=== PATIENT | female | born 1990 | race American Indian/Alaskan Native ===

== ENCOUNTER 2017-03-28 09:51 | Emergency (ER) | payer OTHER ==
[2017-03-28] MEDS ORDERED: NORCO 5/325 PO ONE (14:16)
[2017-03-28] MEDS ORDERED: FLEXERIL PO ONE (14:16)
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
[2017-03-28 15:26] VITALS: BP 124/87
== END 2017-03-28 16:44 | disposition home or self-care (01) ==
LOC: ED 09:51
DX: M79.605 Pain in left leg (principal); M79.604 Pain in right leg; I10 Essential (primary) hypertension
CPT/HCPCS: 99282

== ENCOUNTER 2018-03-26 11:06 | Emergency (ER) | payer MEDICAID, OTHER ==
[2018-03-26] MEDS ORDERED: NACL 0.9% 1000 ML 1,000 ML IV ONE (11:23)
--- NOTE | 2018-03-26 11:26 | Emergency Department Report ---
Blank Doc - Documentation Documentation: 27 y o present 6 weeks preg with left pelvic pain x 2 dya labs ordered Plan: US Rm [id number] revaluate
[2018-03-26 11:52] LABS: Basophils % (Auto) 0.7 % (0.0-1.8); Eosinophils # (Auto) 0.1 K/mm3 (0.0-0.4); Eosinophils % (Auto) 2.7 % (0.0-4.3); Hematocrit 35.9 % (30.3-42.9); Hemoglobin 11.6 gm/dl (10.1-14.3); Lymphocytes # (Auto) 1.4 K/mm3 (1.2-5.4); Lymphocytes % (Auto) 35.2 % (13.4-35.0); Mean Corpuscular HGB Conc 32 % (30-34); Mean Corpuscular Volume 84 fl (79-97); Monocytes # (Auto) 0.4 K/mm3 (0.0-0.8); Monocytes % (Auto) 9.1 % (0.0-7.3); Platelet Count 235 K/mm3 (140-440); Red Cell Distribution Width 14.3 % (13.2-15.2)
[2018-03-26 12:36] LABS: Bacteria,Urine 4+ /HPF (Negative); Bilirubin,Urine NEG (Negative); Blood,Urine NEG (Negative); Color,Urine Yellow (Yellow); Mucus,Urine FEW /HPF; Protein,Urine <15 mg/dL mg/dL (Negative); Urobilinogen,Urine < 2.0 mg/dL (<2.0)
--- NOTE | 2018-03-26 12:40 | Emergency Department Report ---
ED HPI - General Chief complaint: Abdominal Pain Stated complaint: ABD PAIN/PREG Time Seen by Provider: 03/26/18 11:20 Source: patient Mode of arrival: Ambulatory Limitations: No Limitations - History of Present Illness Initial comments: This is a 27-year-old female nontoxic, well nourished in appearance, no acute signs of distress presents to the ED with c/o of left sided pelvic pain x2 days. Patient stated is about 6 weeks . Patient denies any vaginal bleeding. Patient denies any abdominal pain. Patient denies any vaginal discharge or foul odor. Patient denies any nausea, vomiting, chest pain, shortness of breathe, fever, chills, headache, stiff neck, numbness, tingling. Patient denies any urinary symptoms. Patient denies any allergies or PMH. LMP was 02/12/2018. Complaint: other (pelvic pain) -: days(s) (2) Location: pelvis Radiation: none Severity: mild Severity scale (0 -10): 8 Quality: cramping, aching Consistency: constant Improves with: none Worsens with: none Associated symptoms: denies: nausea/vomiting, vaginal bleeding, vaginal discharge, abdominal pain, dysuria, headache, vision changes, malaise, dysparuenia, rash, seizure, shortness of breath, syncope, weakness Vaginal bleeding: none :: Yes Number of weeks : 6 Pre-devon care: none - Related Data Home Medications Medication Instructions Recorded Confirmed Last Taken oxyCODONE /ACETAMINOPHEN [Percocet 1 tab PO Q4-6H PRN 03/30/14 03/30/14 03/29/14 22:00 5/325 mg] Previous Rx's Medication Instructions Recorded Last Taken Type Acetaminophen/Codeine 1 tab PO Q6H PRN #15 tab 03/30/14 Unknown Rx [Acetaminophen-Codeine #3 TAB] Diclofenac Dr [Nilay Dewey] 75 mg PO TID #20 tablet 03/30/14 Unknown Rx methOCARBAMOL [Robaxin] 500 mg PO Q6H PRN #20 tablet 03/30/14 Unknown Rx Cyclobenzaprine [Flexeril] 10 mg PO TID PRN #15 tablet 03/28/17 Unknown Rx Ibuprofen [Motrin] 600 mg PO Q8H PRN 5 Days #15 tablet 03/28/17 Unknown Rx Acetaminophen 500 mg PO Q8H PRN #20 tablet 03/26/18 Unknown Rx 21/Iron Fu/Folic Acid 1 each PO DAILY #30 tablet 03/26/18 Unknown Rx [ Complete Caplet] Allergies Allergy/AdvReac Type Severity Reaction Status Date / Time No Known Allergies Allergy Verified 03/30/14 10:35 ED Review of Systems ROS: Stated complaint: ABD PAIN/PREG Other details as noted in HPI Constitutional: denies: chills, fever Eyes: denies: eye pain, eye discharge, vision change ENT: denies: ear pain, throat pain Respiratory: denies: cough, shortness of breath, wheezing Cardiovascular: denies: chest pain, palpitations Endocrine: no symptoms reported Gastrointestinal: denies: abdominal pain, nausea, diarrhea Genitourinary: denies: urgency, dysuria, discharge Musculoskeletal: denies: back pain, joint swelling, arthralgia Skin: denies: rash, lesions Neurological: denies: headache, weakness, paresthesias Psychiatric: denies: anxiety, depression Hematological/Lymphatic: denies: easy bleeding, easy bruising ED Past Medical Hx - Past Medical History Hx Hypertension: Yes Hx Asthma: Yes - Surgical History Additional Surgical History: . laproscopy-right ovary and tube removed. kidney biopsy - Social History Smoking Status: Never Smoker Substance Use Type: None - Medications Home Medications: Home Medications Medication Instructions Recorded Confirmed Last Taken Type Acetaminophen/Codeine 1 tab PO Q6H PRN #15 tab 03/30/14 Unknown Rx [Acetaminophen-Codeine #3 TAB] Diclofenac Dr [Nilay Dewey] 75 mg PO TID #20 tablet 03/30/14 Unknown Rx methOCARBAMOL [Robaxin] 500 mg PO Q6H PRN #20 tablet 03/30/14 Unknown Rx oxyCODONE /ACETAMINOPHEN [Percocet 1 tab PO Q4-6H PRN 03/30/14 03/30/14 03/29/14 22:00 History 5/325 mg] Cyclobenzaprine [Flexeril] 10 mg PO TID PRN #15 tablet 03/28/17 Unknown Rx Ibuprofen [Motrin] 600 mg PO Q8H PRN 5 Days #15 tablet 03/28/17 Unknown Rx Acetaminophen 500 mg PO Q8H PRN #20 tablet 03/26/18 Unknown Rx 21/Iron Fu/Folic Acid 1 each PO DAILY #30 tablet 03/26/18 Unknown Rx [ Complete Caplet] ED Physical Exam - General Limitations: No Limitations General appearance: alert, in no apparent distress - Head Head exam: Present: atraumatic, normocephalic - Neck Neck exam: Present: normal inspection, full ROM - GI/Abdominal GI/Abdominal exam: Present: soft, tenderness (left pelvic area), normal bowel sounds. Absent: distended, guarding, rebound, rigid, diminished bowel sounds - Expanded GI/Abdominal Exam Expanded GI/Abdominal exam: Absent: psoas sign, Bryant's sign, Rovsing's sign, tenderness at [place]bur[place]'s Point, ascites - Extremities Exam Extremities exam: Present: normal inspection, full ROM - Back Exam Back exam: Present: normal inspection, full ROM - Neurological Exam Neurological exam: Present: alert, oriented X3 - Psychiatric Psychiatric exam: Present: normal affect, normal mood - Skin Skin exam: Present: warm, dry, intact, normal color. Absent: rash ED Course Vital Signs 03/26/18 11:19 Temperature 97.7 F Pulse Rate 94 H Respiratory 16 Rate Blood Pressure 123/58 O2 Sat by Pulse 99 Oximetry - Reevaluation(s) Reevaluation #1: 03/26/18 12:41 Patient is speaking in full sentences with no signs of distress noted. Reevaluation #2: 03/26/18 15:23 Patient returned to the ED for results. ED Medical Decision Making - Lab Data Result diagrams: 03/26/18 11:41 - Medical Decision Making This is a 27-year-old female that presents with left pelvic pain. Patient was examined by me. Patient does have left pelvic tenderness. Patient is currently 6 weeks so labs obtained. Ultrasound has been obtained. Patient left prior to receiving ultrasound results. Patient was educated and instructed of concern about ectopic which can lead to severe risk complications and but patient stated she has to leave. I had RN Sherman also speak with patient and educated patient to stay but patient left AMA. Patient return to emergency room for results after the Case. Pelvic ultrasound has been reviewed and does have a gestational sac with no heart tone. Patient is currently about 6 weeks . No ectopic noted. Patient has been notified of the results with all questions noted by the patient. 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 Patient was educated of symptoms of ectopic and to return to emergency room as was possible if this does occur. At time of discharge, the patient does not seem toxic or ill in appearance. No acute signs of distress noted. Patient agrees to discharge treatment plan of care. No further questions noted by the patient. Critical care attestation.: If time is entered above; I have spent that time in minutes in the direct care of this critically ill patient, excluding procedure time. ED Disposition Clinical Impression: Pelvic pain affecting Qualifiers: Trimester: unspecified trimester Qualified Code(s): O26.899 - Other specified related conditions, unspecified trimester Disposition: - TO HOME OR SELFCARE Is pt being admited?: No Does the pt Need Aspirin: No Condition: Stable Instructions: Ectopic (ED), (ED) Additional Instructions: Follow-up with a OBGYN doctor in 2-3 days or if symptoms worsen and continue return to emergency room as soon as possible. Prescriptions: Acetaminophen 500 mg PO Q8H PRN #20 tablet PRN Reason: Pain , Severe (7-10) 21/Iron Fu/Folic Acid [ Complete Caplet] 1 each PO DAILY #30 tablet Referrals: KAY GUPTA MD [Primary Care Provider] - 3-5 Days PRIMARY CAREMD [Referring] - 3-5 Days VONDA MCKEON MD [Staff Physician] - 3-5 Days [facility] [Provider Group] - 3-5 Days Forms: Work/School Release Form(ED)
--- NOTE | 2018-03-26 15:11 | Ultrasound Report ---
FINAL REPORT EXAM: US OB <= 14 WEEKS FETUS, TRANSABDOMINAL and TRANSVAGINAL HISTORY: pelvic pain , patient TECHNIQUE: Pelvis ultrasound using 2 different techniques: TRANSABDOMINAL and TRANSVAGINAL PRIORS: None. FINDINGS: An 11 mm gestational sac is present in the endometrial cavity containing only a yolk sac without feta l pole. viability cannot be documented with evidence of pole and/or cardiac activity. Average estimated gestational age by ultrasound: 5 weeks 6 days Estimated delivery date: 11/20/2018 Nonspecific 2.6 x 1.2 x 0.8 cm hypoechoic focus adjacent to the gestational sac may be a subchorionic hemorrhage. Uterus measures 10.6 x 5.5 x 7.1 cm. Endometrial thickness 29 mm. Nonspecific slight complex cul-de-sac free fluid. Right ovary surgically absent. Left ovary measures 3.4 x 1.9 x 3.7 cm. 2.7 cm hypoechoic nonspecific lesion in left ovary may be a corpus luteum. Left ovarian blood flow noted. IMPRESSION: Intrauterine gestational sac contains a yolk sac but no pole. viability cannot be documen jake on this exam. Follow-up may be useful in the appropriate clinical setting Small hypoechoic focus adjacent to the gestational sac may be a small subchorionic hemorrhage Nonspecific slight complex cul-de-sac free fluid Surgically absent right ovary Small hypoechoic focus in left ovary may be a corpus luteum
--- NOTE | 2018-03-26 15:14 | Ultrasound Report ---
FINAL REPORT EXAM: US OB TRANSVAGINAL AND TRANSABDOMINAL HISTORY: pelvic pain TECHNIQUE: Pelvis ultrasound using 2 different techniques: TRANSABDOMINAL and TRANSVAGINAL PRIORS: None. FINDINGS: An 11 mm gestational sac is present in the endometrial cavity containing only a yolk sac without feta l pole. viability cannot be documented with evidence of pole and/or cardiac activity. Average estimated gestational age by ultrasound: 5 weeks 6 days Estimated delivery date: 11/20/2018 Nonspecific 2.6 x 1.2 x 0.8 cm hypoechoic focus adjacent to the gestational sac may be a subchorionic hemorrhage. Uterus measures 10.6 x 5.5 x 7.1 cm. Endometrial thickness 29 mm. Nonspecific slight complex cul-de-sac free fluid. Right ovary surgically absent. Left ovary measures 3.4 x 1.9 x 3.7 cm. 2.7 cm hypoechoic nonspecific lesion in left ovary may be a corpus luteum. Left ovarian blood flow noted. IMPRESSION: Intrauterine gestational sac contains a yolk sac but no pole. viability cannot be documen jake on this exam. Follow-up may be useful in the appropriate clinical setting Small hypoechoic focus adjacent to the gestational sac may be a subchorionic hemorrhage Nonspecific slight complex cul-de-sac free fluid Surgically absent right ovary Small hypoechoic focus in left ovary may be a corpus luteum
[2018-03-26 15:39] VITALS: BP 106/64
== END 2018-03-26 15:34 | disposition home or self-care (01) ==
LOC: ED 11:06
DX: O26.891 Other specified pregnancy related conditions, first trimester (principal); O16.1 Unspecified maternal hypertension, first trimester; O99.511 Diseases of the respiratory system complicating pregnancy, first trimester; Z3A.01 Less than 8 weeks gestation of pregnancy
CPT/HCPCS: 36415; 76801; 76817; 81001; 84702; 85025; 99284; J7030

== ENCOUNTER 2018-10-29 17:07 | Outpatient (CLI) | payer OTHER ==
[2018-10-29 18:01] VITALS: BP 110/74
== END 2018-10-29 19:05 | disposition home or self-care (01) ==
LOC: TRG 17:07
PROVIDERS: ATTEND Obstetrics & Gynecology
DX: O47.03 False labor before 37 completed weeks of gestation, third trimester (principal); Z3A.36 36 weeks gestation of pregnancy
CPT/HCPCS: 59025

== ENCOUNTER 2018-10-30 02:58 | Outpatient (CLI) | payer OTHER ==
[2018-10-30] MEDS ORDERED: LACTATED RINGERS 1,000 ML IV ONE (03:10)
[2018-10-30 03:28] VITALS: BP 109/54
== END 2018-10-30 04:50 | disposition home or self-care (01) ==
LOC: TRG 02:58
PROVIDERS: ATTEND Obstetrics & Gynecology
DX: O26.893 Other specified pregnancy related conditions, third trimester (principal); R10.31 Right lower quadrant pain; O99.513 Diseases of the respiratory system complicating pregnancy, third trimester; J45.909 Unspecified asthma, uncomplicated; O10.913 Unspecified pre-existing hypertension complicating pregnancy, third trimester; Z3A.36 36 weeks gestation of pregnancy
CPT/HCPCS: 59025; 96360; J7120

== ENCOUNTER 2018-11-19 09:33 | Inpatient (IN) | payer OTHER ==
--- NOTE | 2018-11-17 10:13 | History and Physical Report ---
History of Present Illness Date of examination: 11/17/18 Date of admission: 11/19/18 Chief complaint: here for c/s History of present illness: Pt presents for pre op for c/s. All risk, benefits, and alternatives were d/w pt and questions were addressed and answered. Pt was given ample time to ask questions. Consents were signed and given to pt to bring to hospital day of surgery. Pt does not desire BTl at this time. EDC Confirmation: 11/24/2018 Gestational Age: 8 3/7 weeks Past History : 4 Term Births: 2 Premature Births: 0 Living Children: 2 Para: 2 Mult. Births: 0 Prev : 1 Aborta: 1 Elect. Ab: 1 Spont. Ab: 0 Ectopics: 0 # 1 Delivery date: 03/21/2009 Weeks Gestation: 41 labor: no Delivery type: Hours of labor: 10 Anesthesia type: epidural Delivery location: [place] Infant Sex: Male weight: 7'1 Name: Lanre Comments: post part inc of bp # 2 Weeks Gestation: - Delivery type: EAB Sex: - weight: - Comments: - # 3 Delivery date: 2010 Weeks Gestation: 39 labor: no Delivery type: Anesthesia type: spinal Delivery location: [place] Sex: Female weight: 6-13 Name: Cary Comments: Breech Past Medical History: Asthma Depression Attention Deficiit Disorder Past Surgical History: laparatomy for UNILAT so 2010 RS&O Kidney biopsy Social History: Patient is single has a partner. no condoms Smoking History: Patient has never smoked. 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 no condoms Smoking History: Patient has never smoked. 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 of genital herpes: no Infection History Comments: GC Genetic History Congenital Heart Defect: Mom: no Dad: no Charisma Disease: Mom: no Dad: no Thalassemia Mom: no Dad: no Neural Tube Defect Mom: no Dad: no Down's Syndrome Mom: no Dad: no Kwaku-Sachs Mom: no Dad: no Sickle Cell Disease/Trait Mom: no Dad: no Hemophilia Mom: no Dad: no Muscular Dystrophy Mom: no Dad: no Cystic Fibrosis Mom: no Dad: no Rigo Chorea Mom: no Dad: no Mental Retardation Mom: no Dad: no Fragile X Mom: no Dad: no Other Genetic/Chromosomal Disorder Mom: no Dad: no Child w/other defect Mom: no Dad: no Enviromental Exposures Xray Exposure: no Medication, drug, or alcohol use since LMP: yes Chemical/Other Exposure: no Exposure to Cat Liter: no Active Medications (reviewed today): PROZAC 20 MG ORAL CAPSULE (FLUOXETINE HCL) one po q day ADDERALL 20 MG ORAL TABLET (AMPHETAMINE-DEXTROAMPHETAMINE) IBUPROFEN 800 MG ORAL TABLET (IBUPROFEN) 1 tab q 8 h . 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 [employer] LIQUEFACTION History: denies: abnormal PAP smear Family/Genetic History: other (see hpi) Social history: no significant social history, single - Obstetrical History Expected Date of Delivery: 11/24/18 Actual Gestation: 39 Week(s) 0 Day(s) : 4 Para: 2 Induced : 1 Number of Living Children: 2 Medications and Allergies Allergies Allergy/AdvReac Type Severity Reaction Status Date / Time No Known Allergies Allergy Verified 03/30/14 10:35 Home Medications Medication Instructions Recorded Confirmed Last Taken Type Acetaminophen/Codeine 1 tab PO Q6H PRN #15 tab 03/30/14 Unknown Rx [Acetaminophen-Codeine #3 TAB] Diclofenac Dr [Voltaren Dr] 75 mg PO TID #20 tablet 03/30/14 Unknown Rx methOCARBAMOL [Robaxin] 500 mg PO Q6H PRN #20 tablet 03/30/14 Unknown Rx oxyCODONE /ACETAMINOPHEN [Percocet 1 tab PO Q4-6H PRN 03/30/14 03/30/14 03/29/14 22:00 History 5/325 mg] Cyclobenzaprine [Flexeril] 10 mg PO TID PRN #15 tablet 03/28/17 Unknown Rx Ibuprofen [Motrin] 600 mg PO Q8H PRN 5 Days #15 tablet 03/28/17 Unknown Rx Acetaminophen 500 mg PO Q8H PRN #20 tablet 03/26/18 Unknown Rx 21/Iron Fu/Folic Acid 1 each PO DAILY #30 tablet 03/26/18 Unknown Rx [ Complete Caplet] Review of Systems All systems: negative - Physical Exam Cardiovascular: Normal S1, Normal S2 Lungs: Positive: Clear to auscultation, Normal air movement Abdomen: Positive: normal appearance, soft. Negative: distention, tenderness, guarding Genitourinary (Female): Positive: other (deferred) Deep Tendon Reflex Grade: Normal +2 - Obstetrical FHR: auscultation normal Results All other labs normal. Assessment and Plan - Patient Problems (1) 39 weeks gestation of Status: Acute (2) Previous section Status: Acute Plan to address problem: -admit and prepare for c/s -consents signed and placed on the chart -all questions were addressed and answered.
[2018-11-19] MEDS ORDERED: ONDANSETRON 4 MG/2 ML INJ ONE (09:54)
[2018-11-19] MEDS ORDERED: DEXMEDETOMIDINE 200 MCG/2 ML VIAL IV ONE (09:54)
[2018-11-19] MEDS ORDERED: LACTATED RINGERS 2,000 ML ONE (10:20)
[2018-11-19] MEDS: LACTATED RINGERS 1,000 ML IV SCH ×2 (10:50→11:15)
[2018-11-19 11:13] LABS: Basophils % (Auto) 0.3 % (0.0-1.8); Eosinophils # (Auto) 0.1 K/mm3 (0.0-0.4); Eosinophils % (Auto) 1.4 % (0.0-4.3); Hematocrit 33.9 % (30.3-42.9); Hemoglobin 11.4 gm/dl (10.1-14.3); Lymphocytes # (Auto) 1.5 K/mm3 (1.2-5.4); Lymphocytes % (Auto) 28.3 % (13.4-35.0); Mean Corpuscular HGB Conc 34 % (30-34); Mean Corpuscular Volume 85 fl (79-97); Monocytes # (Auto) 0.4 K/mm3 (0.0-0.8); Monocytes % (Auto) 7.5 % (0.0-7.3); Platelet Count 204 K/mm3 (140-440); Red Blood Count 3.98 M/mm3 (3.65-5.03); Red Cell Distribution Width 14.5 % (13.2-15.2)
--- NOTE | 2018-11-19 11:15 | Anesthesia Day of Surgery ---
Anesthesia Day of Surgery - Day of Surgery Patient Examined: Yes Patient H&P Reviewed: Yes Patient is NPO: Yes Beta Blockers: No Cardiac Clearance: No Pulmonary Clearance: No Gael's Test: N/A
--- NOTE | 2018-11-19 11:15 | Anesthesia Consultation ---
Anesthesia Consult and Med Hx Date of service: 11/19/18 - Airway Anesthetic Teeth Evaluation: Good ROM Head & Neck: Adequate Mental/Hyoid Distance: Adequate Mallampati Class: Class III Intubation Access Assessment: Probably Good - Pulmonary Exam CTA: Yes - Cardiac Exam Cardiac Exam: RRR - Pre-Operative Health Status ASA Pre-Surgery Classification: ASA2 Proposed Anesthetic Plan: Spinal - Pulmonary Hx Smoking: No Hx Asthma: Yes (last attack 10 yrs ago) Hx Respiratory Symptoms: No SOB: No COPD: No Home Oxygen Therapy: No Hx Pneumonia: No Hx Sleep Apnea: No - Cardiovascular System Hx Hypertension: Yes Hx Coronary Artery Disease: No Hx Heart Attack/AMI: No Hx Angina: No Hx Percutaneous Transluminal Coronary Angioplasty (PTCA): No Hx Cardia Arrhythmia: No Hx Pacemaker: No Hx Internal Defibrillator: No Hx Valvular Heart Disease: No Hx Heart Murmur: No Hx Peripheral Vascular Disease: No - Central Nervous System Hx Neuromuscular Disorder: No Hx Seizures: No CVA: No Hx Back Pain: Yes Hx Psychiatric Problems: No - Gastrointestinal Hx Ulcer: No Hx Gastroesophageal Reflux Disease: Yes - Endocrine Hx Renal Disease: No Hx End Stage Renal Disease: No Hx Cirrhosis: No Hx Liver Disease: No Hx Insulin Dependent Diabetes: No Hx Non-Insulin Dependent Diabetes: No Hx Thyroid Disease: No Hx Hypothyroidism: No Hx Hyperthyroidism: No - Hematic Hx Anemia: No Hx Sickle Cell Disease: No - Other Systems Hx Alcohol Use: Yes Hx Substance Use: No Hx Cancer: No Hx Obesity: Yes (38.7)
[2018-11-19] MEDS ORDERED: ceFAZolin/Water 2 GM/20 ML 2 GM/20 ML SYRINGE IV ONE (11:22)
[2018-11-19] MEDS ORDERED: BICITRA ORAL LIQD 30ML PO NR (11:30)
[2018-11-19] MEDS: ceFAZolin/STERILE WATER 2 GM/20 ML SYRINGE IV NR ×2 (11:30→15:47)
[2018-11-19] MEDS ORDERED: METOCLOPRAMIDE 10 MG/2 ML INJ IV NR (11:30)
[2018-11-19] MEDS ORDERED: FAMOTIDINE 20 MG/2 ML INJ IV NR (11:30)
[2018-11-19] MEDS ORDERED: ePHEDrine SULFATE 50 MG/1 ML INJ ONE (11:48)
[2018-11-19] MEDS ORDERED: HYDROmorphone 1 MG/1 ML INJ IV PRN ×5 (12:00→19:03)
[2018-11-19] MEDS ORDERED: ONDANSETRON 4 MG/2 ML INJ IV PRN ×2 (12:00→13:18)
[2018-11-19] MEDS ORDERED: OXYTOCIN 20 UNIT/1000ML DRIP 20 UNITS/1,000 ML BAG IV SCH (12:00)
[2018-11-19] MEDS ORDERED: diphenhydrAMINE 50 MG/ML VIAL IV PRN ×2 (12:00→13:18)
[2018-11-19] MEDS ORDERED: WATER FOR IRRIG STERILE 1,500 ML BOTTLE IR ONE (12:15)
[2018-11-19] MEDS ORDERED: SODIUM CHLORIDE 0.9% IRR 1,500 ML BOTTLE IR ONE (12:15)
[2018-11-19] MEDS ORDERED: LANOLIN/ZINC/DIMETHICONE (LANSINOH) 7 GM TP PRN (13:05)
[2018-11-19] MEDS ORDERED: WITCH HAZEL/ GLYCERIN PAD TP PRN (13:05)
[2018-11-19] MEDS ORDERED: NALOXONE 0.4 MG/1 ML INJ IV PRN ×2 (13:05→19:03)
[2018-11-19] MEDS ORDERED: ACETAMINOPHEN 325 MG TAB PO PRN (13:05)
[2018-11-19] MEDS ORDERED: SIMETHICONE 80 MG CHEW TAB PO PRN (13:05)
--- NOTE | 2018-11-19 13:21 | Operative Report ---
Operative Report Operative Report: Date of procedure: 11/19/2018 Pre-operative diagnosis: 39 weeks gestation Previous section 1 bradycardia Post-operative diagnosis: Same Procedure name(s): Stat Repeat low transverse section via Pfannenstiel skin incision Surgeon: Dr. Church Registered Radiologic Technologist: CHERRY Anesthesia: Epidural EBL: 900 mL Urine output: 100 mL of clear urine out at the end of procedure Fluids: 1400 mL Findings: Liveborn male weight 8 lbs. 1 oz. Apgars of 6 and 9 at one and 5 minutes Grossly normal fallopian tubes and ovaries bilaterally Normal uterus Indications: Patient presents for scheduled repeat section. All risks benefits and alternatives were discussed with the patient. Consents were signed and placed on the chart. All port on arrival in the operating room and heart tones were evaluated they were noted to be in the 80s to 90s. Decision was made at this time to proceed with stat section. Procedure: Patient was taking to the operating room. Patient was then prepped and draped in sterile fashion after anesthesia was found to be adequate. A low transverse skin incision was made with the scalpel through previous incisional scar and carried down to the underlying layer of fascia with the scalpel. The fascia was then incised in the midline and this incision was extended bilaterally with the scalpel. The superior aspect of the fascia was grasped with Divya clamps tented upward and dissected off of the anterior rectus muscles with the scalpel. In similar fashion the inferior aspect of the fascia was grasped with Divya clamps tented upward and dissected off of the anterior rectus muscles. The rectus muscles were then sharply divided in the midline. The peritoneum was identified and entered into sharply. The bladder blade was placed. The bladder blade was replaced. A lower transverse uterine incision was made with the scalpel and extended bilaterally with blunt dissection. Artificial rupture of membranes was performed yielding clear amniotic fluid. The 's head was then delivered atraumatically. The anterior shoulder and rest of delivered without difficulty. The umbilical cord was clamped x2. The cord was cut. The was then placed in sterile bassinet. The cord blood was collected. The placenta was manually extracted in its entirety. The uterus was exteriorized and cleared of all clots and debris. The uterine incision was closed using 0 Vicryl in a running locking fashion. A second imbricating layer of the same suture was then created. The posterior cul-de-sac was copiously irrigated. Surgicel was placed on the posterior aspect of the uterus. The uterus was returned to the abdomen. The seal was placed over the uterine incision as well as Surgicel. The gutters were also irrigated. The anterior rectus muscles were reapproximated using 3-0 Vicryl. The anterior rectus fascia was reapproximated using 0 Vicryl in a running fashion. The subcuticular fat was reapproximated using 2-0 Vicryl in a running fashion. The skin was reapproximated with 4-0 Monocryl in a subcuticular stitch. The patient tolerated the procedure well. Sponge lap and needle counts were all correct x3. Patient was taken to the recovery room awake and in stable condition.
[2018-11-19] MEDS: KETOROLAC 30 MG/1 ML INJ IV PRN ×2 (15:37→22:13)
[2018-11-19] MEDS: HYDROmorphone 1 MG/1 ML INJ IV PRN (15:46)
[2018-11-19] MEDS ORDERED: D5W/LACTATED RINGERS 1,000 ML IV SCH (16:00)
[2018-11-19] MEDS: ceFAZolin/NS 1 GM/50 ML 1 GM/50 ML BAG IV SCH (22:10)
[2018-11-20] MEDS: HYDROmorphone 1 MG/1 ML INJ IV PRN (00:09)
[2018-11-20] MEDS ORDERED: HYDROcodone/ACETAMINOPHEN 5-325 MG TAB PO PRN (01:00)
[2018-11-20 01:18] LABS: Hematocrit 24.6 % (30.3-42.9); Hemoglobin 8.3 gm/dl (10.1-14.3)
[2018-11-20] MEDS: KETOROLAC 30 MG/1 ML INJ IV PRN (03:56)
[2018-11-20] MEDS: ceFAZolin/NS 1 GM/50 ML 1 GM/50 ML BAG IV SCH (06:00)
--- NOTE | 2018-11-20 07:46 | Progress Note ---
Assessment and Plan patient resting with baby, states pain medication is not keeping her pain at a reasonable level. Orders changed, will continue to monitor pain relief. VSSAF, H&H 8.3/24.6 - asymptomatic. Lochia scant, fundus firm, , dressing D&I (to be removed after shower.) - Patient Problems (1) Previous section Current Visit: No Status: Acute Plan to address problem: continue postop pathway advance diet and activity as tolerated (2) Anemia associated with acute blood loss Current Visit: Yes Status: Acute Plan to address problem: Asymptomatic FE BID Continue PNV Subjective - Subjective Date of service: 11/20/18 Principal diagnosis: postop day #1 s/p repeat c/s Patient reports: appetite normal, voiding normally, flatus, pain poorly controlled, ambulating normally, no dizzy ambulation, no nauseated : doing well, nursing well Objective - Vital Signs Latest vital signs: Vital Signs Temp Pulse Resp BP BP Pulse Ox 11/20/18 05:41 98.4 F 82 20 114/67 100 11/20/18 00:54 98.3 F 86 20 123/58 98 11/19/18 20:42 97.4 F L 95 H 18 117/71 97 11/19/18 15:55 96.9 F L 87 20 113/59 11/19/18 15:37 18 11/19/18 15:00 98 F 82 20 115/69 11/19/18 14:15 98.7 F 98 H 15 100/59 100 11/19/18 14:00 98.7 F 100 H 15 98/59 100 11/19/18 13:30 87 15 122/65 100 11/19/18 13:15 98.6 F 117 H 16 131/61 100 11/19/18 13:10 98.6 F 113 H 16 95/39 99 11/19/18 13:07 98.6 F 113 H 16 85/39 99 11/19/18 10:51 98.1 F 91 H 16 123/71 Intake and Output 11/19/18 11/19/18 11/20/18 15:59 23:59 07:59 Intake Total 3437.5 410 480 Output Total 204 656 1937 Balance 2637.5 210 -1620 Intake: IV 3237.5 50 ANCEF/NS 1 GM/50 ML 1 gm 50 In 50 ml @ 100 mls/hr IV Q8H [facility] Rx#:[id number] Lactated Ringers 1,000 ml 937.5 @ 2250 mls/hr IV PREOP [facility]I Rx#:[id number] Oral 200 360 Intake, Free Water 480 Output: Urine 652 510 4478 Indwelling Catheter 840 479 5859 Uretheral (Abdi) 500 Void 600 Other: Total, Intake Amount 200 360 Total, Output Amount 200 200 300 Weight 108.862 kg Estimated Blood Loss 800 - Exam Breasts: Present: normal, Cardiovascular: Present: Regular rate Lungs: Present: Clear to auscultation, Normal air movement Abdomen: Present: normal appearance, soft. Absent: distention, tenderness, guarding Vulva: both: normal Uterus: Present: normal, firm, fundal height at umbilicus Extremities: Present: normal Deep Tendon Reflex Grade: Normal +2 Incision: Present: normal, dry, dressed - Labs Labs: Abnormal lab results 11/19/18 11/20/18 Range/Units 10:10 00:57 Hgb 8.3 L D (10.1-14.3) gm/dl Hct 24.6 L D (30.3-42.9) % Steele % (Auto) 7.5 H (0.0-7.3) %
[2018-11-20] MEDS: oxyCODONE /ACETAMINOPHEN 5-325MG TAB PO PRN ×3 (08:34→20:08)
[2018-11-20] MEDS ORDERED: FERROUS SULFATE 325 MG TAB PO SCH (10:00)
[2018-11-20] MEDS: FERROUS SULFATE 325 MG TAB PO SCH ×2 (10:32→22:04)
[2018-11-20] MEDS: IBUPROFEN 800 MG TAB PO PRN ×2 (10:32→16:51)
[2018-11-20] MEDS ORDERED: TETANUS,DIPH,PERTUSS(ACELL) VACCINE 0.5 ML SYRINGE IM ONE (13:08)
[2018-11-21] MEDS: IBUPROFEN 800 MG TAB PO PRN ×3 (01:01→15:12)
[2018-11-21] MEDS: oxyCODONE /ACETAMINOPHEN 5-325MG TAB PO PRN ×3 (03:26→15:13)
--- NOTE | 2018-11-21 08:13 | Discharge Summary ---
Providers - Providers Date of Admission: 11/19/18 09:33 Date of discharge: 11/21/18 (patient desires discharge today. june d/c after 12:30) Attending physician: PHILIP LOPEZ Primary care physician: PHILIP LOPEZ Hospitalization Reason for admission: scheduled repeat c/s Condition: Good Pertinent studies: post delivery H&H 8.3/24.6, acute anemia d/t blood loss at delivery, patient is asymptomatic, Fe ordered. Procedures: repeat section Hospital course: uncomplicated delivery and course Disposition: - TO HOME OR SELFCARE Core Measure Documentation - Palliative Care Palliative Care/ Comfort Measures: Not Applicable - Core Measures Any of the following diagnoses?: none Exam - Constitutional Vitals: Temp Pulse Resp BP Pulse Ox 98.4 F 74 18 114/75 99 11/21/18 00:00 11/21/18 00:00 11/21/18 00:00 11/21/18 00:00 11/20/18 16:20 General appearance: Present: no acute distress, well-nourished - EENT Eyes: Present: PERRL ENT: hearing intact, clear oral mucosa - Neck Neck: Present: supple, normal ROM - Respiratory Respiratory effort: normal Respiratory: bilateral: CTA - Cardiovascular Heart Sounds: Present: S1 & S2. Absent: rub, click - Extremities Extremities: pulses symmetrical, No edema Peripheral Pulses: within normal limits - Abdominal General gastrointestinal: Present: soft, non-tender, non-distended, normal bowel sounds Female genitourinary: Present: normal - Integumentary Integumentary: Present: clear, warm, dry - Musculoskeletal Musculoskeletal: gait normal, strength equal bilaterally - Psychiatric Psychiatric: appropriate mood/affect, intact judgment & insight - Neurologic Neurologic: CNII-XII intact, moves all extremities - Additional findings Additional findings: FF, ML, U/1. Vaginal bleeding is small, patient denies any heavy bleeding or large clots. Incision is well approximated, healing well, no bleeding or drainage noted, no s/s infection. Steri strips remain in place. DWP proper hygiene/care for incision area. DWP post delivery H&H, she denies any dizziness or feeling faint with ambulation or position changes. Fe ordered. Patient reports is going well, infant is doing well. She is supplementing with formula as needed. Encouraged feeding on demand, breast before bottle, increase water intake. Pt encouraged to continue frequent ambulation and use of IS. She desires discharge today. Will plan for d/c 48 hr post delivery assuming she remains stable condition. Plan Activity: advance as tolerated Diet: regular Wound: open to air, keep clean and dry Special Instructions: no heavy lifting Follow up with: PHILIP LOPEZ MD [Primary Care Provider] - 7 Days (Congratulations! Please call [phone] to schedule your post op incision check appointment in 1 week. Call to schedule your son's circumcision appointment in 1 week. Bring prescription EMLA cream with you to his appointment and await further instructions for use. Call with any questions or concerns. ) Prescriptions: Docusate Sodium [Colace] 100 mg PO BID PRN #60 capsule PRN Reason: Constipation Lidocain2.5%/Prilocai2.5% [Emla] 5 gm TP ONCE #1 tube Ferrous Sulfate [Feosol 325 MG tab] 325 mg PO QDAY #60 tablet Ibuprofen [Motrin 800 MG tab] 800 mg PO Q8HR PRN #30 tablet PRN Reason: Pain, Moderate (4-6) oxyCODONE /ACETAMINOPHEN [Percocet 5/325] 1 tab PO Q4HR #30 tab
[2018-11-21] MEDS: FERROUS SULFATE 325 MG TAB PO SCH (09:05)
[2018-11-21] MEDS ORDERED: DOCUSATE SODIUM 100 MG CAP PO SCH (10:00)
[2018-11-21 12:50] VITALS: BP 127/73
== END 2018-11-21 15:36 | disposition home or self-care (01) | DRG 787 ==
LOC: APU 09:33 → OB 14:43
PROVIDERS: ADMIT Obstetrics & Gynecology; ATTEND Obstetrics & Gynecology
PROC: 10D00Z1 Extraction of Products of Conception, Low, Open Approach (ICD-10-PCS; principal; 2018-11-19)
PROC: 3E0234Z Introduction of Serum, Toxoid and Vaccine into Muscle, Percutaneous Approach (ICD-10-PCS; 2018-11-20)
DX: O34.211 Maternal care for low transverse scar from previous cesarean delivery (principal); D62 Acute posthemorrhagic anemia; O10.92 Unspecified pre-existing hypertension complicating childbirth; O99.02 Anemia complicating childbirth; O99.52 Diseases of the respiratory system complicating childbirth; J45.909 Unspecified asthma, uncomplicated; O99.62 Diseases of the digestive system complicating childbirth; K21.9 Gastro-esophageal reflux disease without esophagitis; O99.214 Obesity complicating childbirth; O99.314 Alcohol use complicating childbirth; O99.344 Other mental disorders complicating childbirth; F32.9 Major depressive disorder, single episode, unspecified; Z3A.39 39 weeks gestation of pregnancy; Z37.0 Single live birth; Z79.899 Other long term (current) drug therapy; Z23 Encounter for immunization
CPT/HCPCS: 36415; 85014; 85018; 85025; 86592; 86850; 86900; 86901; 88307; G0378; A6250; C9250; J0690; J1170; J1885; J2405; J2590; J2765; J3490; J7120; J7121